=== PATIENT | female | born 1945 | race Caucasian/White ===

== ENCOUNTER → 2016-06-10 | Outpatient (CLI) | payer BC ==
[~2016-06-10] MED LIST: ASPI-113 PO; CALC-354 PO; LORA0.5T12 PO; OMEGCAP2 PO; RSTOPS OPB; SIMV40TA4 PO
--- NOTE | 2016-06-10 16:11 | MAMMOGRAPHY REPORT ---
BILATERAL DIGITAL SCREENING MAMMOGRAM WITH CAD: 06/10/2016 CLINICAL HISTORY: Routine screening. Patient has no complaints. TECHNIQUE: Current study was also evaluated with a Computer Aided Detection (CAD) system. Bilatera l CC and MLO views were obtained. COMPARISON: Comparison is made to exams dated: 06/09/2015 mammogram, 06/05/2013 mammogram, 06/06/2014 ma mmogram, 06/02/2012 mammogram, 05/20/2011 mammogram, and 05/19/2010 mammogram - [facility]. BREAST COMPOSITION: There are scattered areas of fibroglandular density in both breasts. FINDINGS: No suspicious masses, calcifications, or areas of architectural distortion are noted in e ither breast. There has been no significant interval change compared to prior exams. Scattered bilat eral benign-appearing calcifications are not significantly changed. A biopsy marker clip is again n oted in the right medial breast. IMPRESSION: ACR BI-RADS CATEGORY 2: BENIGN There is no mammographic evidence of malignancy. A 1 year screening mammogram is recommended. The p atient will receive written notification of the results. Approximately 10% of breast cancers are not detected with mammography. A negative mammographic repor t should not delay biopsy if a clinically suggestive mass is present. Nicole Gonzalez M.D. ah/:06/10/2016 13:26:11 House Player: Kathleen SCHULTE(Young)(Edgar)(BD), [facility] letter sent: Normal 1/2 BI-RADS Code: ACR BI-RADS Category 2: Benign
== END | disposition home or self-care (01) ==
LOC: C.MAMM 10:35
PROVIDERS: ATTEND Obstetrics & Gynecology
DX: Z12.31 Encounter for screening mammogram for malignant neoplasm of breast (principal)

== ENCOUNTER → 2017-06-13 | Outpatient (CLI) | payer BC ==
--- NOTE | 2017-06-13 14:47 | MAMMOGRAPHY REPORT ---
BILATERAL DIGITAL SCREENING MAMMOGRAM TOMOSYNTHESIS WITH CAD: 06/13/2017 CLINICAL HISTORY: Routine screening. Patient has no complaints. TECHNIQUE: Breast tomosynthesis in addition to standard 2D mammography was performed. Current study was also evaluated with a Computer Aided Detection (CAD) system. COMPARISON: Comparison is made to exams dated: 06/10/2016 mammogram, 06/09/2015 mammogram, 06/06/2014 ma mmogram, 06/05/2013 mammogram, 06/02/2012 mammogram, and 05/20/2011 mammogram - [facility]. BREAST COMPOSITION: There are scattered areas of fibroglandular density in both breasts. FINDINGS: There are scattered benign-appearing calcifications in the breasts, and a stable biopsy mar ker clip in the medial right breast. No new suspicious mass, architectural distortion or cluster of suspicious microcalcifications is seen. IMPRESSION: ACR BI-RADS CATEGORY 1: NEGATIVE There is no mammographic evidence of malignancy. A 1 year screening mammogram is recommended. The pa tient will receive written notification of the results. Approximately 10% of breast cancers are not detected with mammography. A negative mammographic report should not delay biopsy if a clinically suggestive mass is present. Cassi Daly M.D. ay/:06/13/2017 13:37:34 Electrician Aircraft: Jovana DINH)(M), [facility] letter sent: Normal 1/2 BI-RADS Code: ACR BI-RADS Category 1: Negative
== END | disposition home or self-care (01) ==
LOC: C.MAMM 10:33
PROVIDERS: ATTEND Obstetrics & Gynecology
DX: Z12.31 Encounter for screening mammogram for malignant neoplasm of breast (principal)

== ENCOUNTER 2019-03-06 10:11 | Inpatient (IN) ==
--- NOTE | 2019-02-03 14:16 | PAT Medication Instructions ---
Medication Instructions Date of Service February 03, 2019 Home Medications Caltrate 600 plus D 2 tab PO QPM Restasis 1 drp OPHTHALMIC (EYE) Q12H aspirin [Aspirin Low Dose] 81 mg PO QAM flaxseed oil 2,000 mg PO BID garlic 1,000 mg PO QAM lorazepam 0.5 - 1 mg PO HS PRN magnesium oxide 400 mg PO QPM PRN meloxicam 15 mg PO QAM PRN fluticasone propionate 1 applic TOPICAL UD ASK your surgeon for instructions meloxicam 15 mg PO QAM PRN STOP taking 2 weeks before surgery (or as soon as possible if surgery is within 2 weeks) flaxseed oil 2,000 mg PO BID garlic 1,000 mg PO QAM STOP taking 24 hours before surgery fluticasone propionate 1 applic TOPICAL UD Take morning of surgery With a small sip of water, OTHERWISE NOTHING TO EAT OR DRINK AFTER MIDNIGHT: Restasis 1 drp OPHTHALMIC (EYE) Q12H aspirin [Aspirin Low Dose] 81 mg PO QAM Take evening before surgery Caltrate 600 plus D 2 tab PO QPM Restasis 1 drp OPHTHALMIC (EYE) Q12H lorazepam 0.5 - 1 mg PO HS PRN (if needed) magnesium oxide 400 mg PO QPM PRN (if needed) Other Notes If you have any questions please call us at [phone] or [phone] or [phone] or [phone]
--- NOTE | 2019-02-05 09:35 | Anesthesiology Consultation ---
Date of Service February 05, 2019 Assessment & Plan (1) Encounter for pre-operative examination: Chart Review Chart Review: Pending: Refer to Additional Notes / Consult section (pending preop testing (labs, EKG, CXR)) and Patient seen in Pre Admission Testing Teaching & Discussion Pre-Anesthesia Teaching/Discussion Notes: Instructed NPO after midnight before surgery,except medications with 15 cc of water. Medication instructions provi ded according to the PAT guidelines. History Surgery Operation Date: 03/06/19 12:30 Proposed Procedures p Total Knee Arthroplasty - Adan Dunbar MD Left Height/Weight Height: 5 ft 6 in Weight: 71.7 kg Allergies Allergy/AdvReac Type Severity Reaction Status Date / Time No Known Allergies Allergy Verified 02/02/19 11:34 Medications Home Medications Medication Instructions Recorded Confirmed Last Taken Caltrate 600 plus D 2 tab PO QPM 03/13/18 02/02/19 03/13/18 Restasis 1 drp OPHTHALMIC (EYE) Q12H 03/13/18 02/02/19 03/14/18 aspirin [Aspirin Low Dose] 81 mg PO QAM 03/13/18 02/02/19 03/13/18 flaxseed oil 2,000 mg PO BID 03/13/18 02/02/19 03/13/18 garlic 1,000 mg PO QAM 03/13/18 02/02/19 03/13/18 lorazepam 0.5 - 1 mg PO HS PRN 03/13/18 02/02/19 03/13/18 magnesium oxide 400 mg PO QPM PRN 03/13/18 02/02/19 02/08/18 meloxicam 15 mg PO QAM PRN 03/13/18 02/02/19 03/12/18 fluticasone propionate 1 applic TOPICAL UD 02/02/19 02/02/19 Unknown Past Medical History Medical History Anxiety Eczema GERD (gastroesophageal reflux disease) diet controlled History of migraine Hyperlipidemia no meds Osteoarthritis Exercise / Class Metabolic Activity II 4-5 Yardwork/Stairs/Walk up hill Past Surgical History Surgical History History of arthroscopy of right knee History of bilateral cataract extraction History of bilateral tubal ligation History of breast biopsy R--benign History of colonoscopy w/ polypectomy History of dilatation and curettage History of tooth extraction wisdom teeth Hx of lumpectomy 1965--R benign Past Anesthesia History Other Patient- Awareness toward end of procedure (specifically with colonoscopy). Granddaughter- "slow to wake" x 1 episode. History of PONV No Hx of PONV and Hx of Motion Sickness (seasickness x 1 episode ) Social History Smoking Status: Never smoker Do You Dip or Chew Tobacco: No Hx Alcohol Use: Yes Alcohol type: wine alcohol intake frequency: a few times a month Hx Substance Use: No substance use type: does not use Review of Systems Rare, remote hx palpitations. Reflux diet controlled. Patient denies chest pain, shortness of breath, dyspnea on exertion, cough, wheezing. Physical Exam Vital Signs VITALS BP 121/69 P 66 TEMP 97.7 SP02 99%RA RESP 18 PHYSICAL Full neck and c-spine range of motion. Full TMJ range of motion. TMD 2.5 finger breaths (small chin) Mallampati Score 3 (small oral opening) Dentition: intact, naturally "sharp" lower canine teeth, caps on several teeth on sides/molars Lungs: clear throughout to auscultation Cardiac: regular rate and rhythm, no murmurs noted Spine: normal Carotid arteries: negative bruit Extremities: no edema Testing Echocardiogram Date: 11/28/12 EF 60-65%. No RWMA. Grade I-II DD. Mild RVD. Mild mitral annular calcification.
--- NOTE | 2019-02-05 10:59 | XRay Report ---
XR chest Pre-admission PA/Lat CLINICAL HISTORY: Preoperative chest COMPARISON STUDY: No previous studies for comparison. FINDINGS: The cardiac and mediastinal contours are normal. There is mild interstitial thickening/scar ring at the right lung apex. There is no focal pulmonary consolidation. There are no pleural effusion s. On the lateral view, there is a 13 mm opacity within the retrosternal soft tissues. No correspondi ng abnormalities visualized in the PA film. CT scanning is recommended in follow-up[ IMPRESSION: 1. Nonspecific 13 mm opacity visualized within the retrosternal space on the lateral view. No corresp onding abnormality is visualized in the PA film. CT scanning is recommended in follow-up to exclude a true parenchymal nodule Electronically signed by: Bryson Gardner M.D. 02/05/2019 10:58 AM
[2019-02-05 11:32] LABS: Basophils # (auto) 0.03 K/uL (0-0.2); Basophils % (auto) 0.4 %; Eosinophils # (auto) 0.11 K/uL (0-0.5); Eosinophils % (auto) 1.5 %; Hematocrit (blood only) 41.3 % (37-47); Immature Granulocytes # (auto) 0.02 K/uL (0.00-0.02); Immature Granulocytes % (auto) 0.3 %; Lymphocytes # (auto) 2.33 K/uL (1.2-3.4); Lymphocytes % (auto) 31.6 %; Mean Corpuscular Hemoglobin 30.8 pg (25-34); Mean Corpuscular Hgb Conc 33.9 g/dL (32-36); Mean Platelet Volume 10.4 fL (7.4-10.4); Monocytes # (auto) 0.48 K/uL (0.11-0.59); Monocytes % (auto) 6.5 %; Neutrophils # (auto) 4.41 K/uL (1.4-6.5); Neutrophils % (auto) 59.7 %; Platelet Count 220 K/uL (130-400); RDW Coefficient of Variation 13.2 % (11.5-14.5); RDW Standard Deviation 43.7 fL (36.4-46.3); Red Blood Count 4.54 M/uL (4.2-5.4); White Blood Count 7.38 K/uL (4.8-10.8)
[2019-02-05 11:47] LABS: Partial Thromboplastin Time 26.4 Seconds (21.0-31.0)
[2019-02-05 11:56] LABS: BUN Creatinine Ratio 28.7 (10-20); Calcium 8.6 mg/dl (8.5-10.1); Est GFR (African American) 101.8; Est GFR (Non-African American) 87.8; Potassium 4.3 mmol/L (3.5-5.1)
--- NOTE | 2019-03-03 18:18 | History and Physical Report ---
DATE OF ADMISSION: 03/06/2019 CHIEF COMPLAINT: Bilateral knee pain and discomfort, left side greater than right. HISTORY OF PRESENT ILLNESS: A 73-year-old female who presents for surgical treatment of her knees. She has been through extensive conservative treatment in the past. She had a long history of knee problems. She has had injections which helped initially but became less successful over time to the point that they do not help much at all. The left knee is a bit worse than the right. It is global pain. The more she walks, the more it hurts. She has pain going up and down stairs. She would like to start getting her knees fixed. PAST MEDICAL HISTORY: 1. Elevated cholesterol. 2. Anxiety/depression. 3. Osteoarthritis. PAST SURGICAL HISTORY: Include: 1. Right knee arthroscopy done 12 years ago. 2. Breast cyst removal. ALLERGIES: None. CURRENT MEDICINES: Include: 1. Lorazepam. 2. Meloxicam. 3. Flaxseed oil. 4. Garlic. 5. Melatonin. 6. Calcium with D. 7. Baby aspirin. 8. Restasis. SOCIAL HISTORY: A 73-year-old female. She is . Lives in [place]. One drink per week. Does not smoke. FAMILY HISTORY: Noncontributory. REVIEW OF HISTORY: Negative for diabetes, neurologic problem, vascular problem, bleeding disorders. Denies any chest pain or shortness of breath. No history of DVT or PE. No known bleeding problems. PHYSICAL EXAMINATION: GENERAL: Reveals a healthy, pleasant middle-aged female. Looks to be in good health. HEENT: Benign. NECK: Supple, no lymphadenopathy. LUNGS: Clear to auscultation. HEART: Regular rate and rhythm. ABDOMEN: Soft, nontender, nondistended. EXTREMITIES: Grossly neurovascularly intact except as follows: Examination of both knees reveals the patient ambulates independently but with a bit of a waddling gait. She has got varus alignment to both knees. Examination of left knee reveals varus alignment. She has got bony hypertrophy medially. Small knee effusion. Range of motion is near full extension to 125 degrees of flexion. No instability. No pain with hip motion. Examination of the right knee reveals a similar varus deformity. She is tender over the medial joint line. She has bony hypertrophy medially. Range of motion is near full extension to 125 degrees of flexion. No instability. No pain with hip motion. X-RAYS: Both knees reveal advanced bilateral knee DJD. She has got complete loss of medial joint space in both knees. Right side is a little worse radiographically, but both are severe. She has subchondral sclerosis. ASSESSMENT: A 73-year-old female with advanced bilateral knee degenerative joint disease. The left side has been more symptomatic than the right. She has failed conservative treatment. She elects to proceed with knee replacement. PLAN: We will take her to the operating room and do left total knee replacement. The risks and benefits of this procedure were explained to the patient including but not limited to DVT, PE, , infection, neurological injury, vascular injury, bleeding problem, pain, limited range of motion, stiffness, failure to relieve symptoms, incomplete relief of symptoms, need for blood transfusion, etc. The patient understands and desires to proceed. Informed consent was obtained. We will do her left knee and see how she recovers from that. She will likely need a right knee done in the future.
[~2019-03-06 10:11] MED LIST changes: +ACETAMINOPHEN 500 MG TAB PO SCH; -ASPI-113 PO; +BUPIVACAINE 0.25% 30 ML VIAL ONE; +BUPIVACAINE 0.5 % 5 MG/1 ML PF 10ML VIAL ONE; +BUPIVACAINE LIPOSOME/PF 266 MG, BUPIVACAINE/EPINEPHRINE 50 ML, SODIUM CHLORIDE 0.9% 30 ... INFIL SCH; -CALC-354 PO; +CEFAZOLIN 2000MG 2,000 MG/15 ML SYR IV SCH; +FAMOTIDINE 20 MG TAB PO SCH; +GABAPENTIN 300 MG CAP PO SCH; -LORA0.5T12 PO; +LR 500ML BOLUS IV SCH; +LR 500ML BOLUS, THEN 15ML/HR IV SCH; +LR 60ML/HR IV SCH; +METOCLOPRAMIDE HCL 10 MG TABLET PO SCH; -OMEGCAP2 PO; -RSTOPS OPB; +SCOPOLAMINE 1.5 MG TDSY TD SCH; -SIMV40TA4 PO; +TRANEXAMIC ACID 1,000 MG **IV Intra-op IV SCH
--- NOTE | 2019-03-06 10:28 | History & Physical Bridge Note ---
Date of Service March 06, 2019 History & Physical Bridge Note I have examined the patient, reviewed the History & Physical and in the interval since the performance of the History & Physical I have noted the following changes of clinical significance: no changes noted
[2019-03-06] MEDS ORDERED: MIDAZOLAM HCL 1 MG/ML 2ML VIAL ONE ×2 (11:02→13:29)
[2019-03-06] MEDS ORDERED: fentaNYL citrate 100 MCG/2 ML VIAL ONE (11:02)
[2019-03-06] MEDS ORDERED: ATROPINE SULFATE 0.1 MG/ML 10ML SYR IV PRN (12:37)
[2019-03-06] MEDS ORDERED: fentaNYL citrate 100 MCG/2 ML VIAL IV PRN (12:37)
[2019-03-06] MEDS ORDERED: ePHEDrine sulfate 50 MG/ML AMP IV PRN (12:37)
[2019-03-06] MEDS ORDERED: BACITRACIN INJ 50,000 UNIT VIAL ONE (12:57)
[2019-03-06] MEDS ORDERED: SODIUM CHLORIDE 0.9% PF 50 ML VIAL ONE (12:57)
[2019-03-06] MEDS ORDERED: BUPIVACAINE LIPOSOME 1.3% 266 MG/20 ML VIAL ONE (12:57)
[2019-03-06] MEDS ORDERED: BUPIVACAINE 0.25% 30 ML VIAL ONE (12:58)
[2019-03-06] MEDS ORDERED: EPINEPHrine INJ 1 MG/ML AMP ONE (12:58)
[2019-03-06] MEDS ORDERED: PROPOFOL IV EMULSION 10 MG/ML 20 ML VIAL IV ONE (13:24)
--- NOTE | 2019-03-06 14:58 | Post Operative Brief Note ---
PG Immediate Post Op with CF Date of Surgery March 06, 2019 Pre & Post Diagnosis Operation Date: 03/06/19 12:30 Pre-Op Diagnosis: Left Knee Advanced Degenerative Joint Disease Post-Op Diagnosis: Left Knee Advanced Degenerative Joint Disease I personally identified the patient: Yes Procedure Operation Date: 03/06/19 12:30 Actual Procedures p Left Total Knee Arthroplasty(Left) - Adan Dunbar MD Surgeon Adan Dunbar MD Rat Culturist Miya, PAC Estimated Blood Loss 50 Findings Consistent with Post-Op Diagnosis Fluids 1500 cc Specimens Specimen Description: A. Left Knee Bone and Tissue Drains Dinero Catheter (A 16 Azeri dinero catheter was inserted by Kelin Alex RN, without difficulty, clear yellow urine obtained, output to be monitored by Anesthesia.) Anesthesia Type Spinal MAC Complications none Disposition Accompanied Patient To Recovery: No Disposition: Recovery Room
--- NOTE | 2019-03-06 15:32 | XRay Report ---
LEFT KNEE 2 VIEWS History: Left total knee arthroplasty. Degenerative arthritis. Postop. FINDINGS: The patient is status post a left total knee arthroplasty. The hardware is intact. No fract ure or dislocation. Skin erasto are in place. IMPRESSION: Left total knee arthroplasty. No evidence for hardware complication. Electronically signed by: Giovanni Licea M.D. 03/06/2019 3:30 PM
[2019-03-06] MEDS ORDERED: LORazepam 0.5 MG TAB PO PRN (15:51)
[2019-03-06] MEDS ORDERED: METOCLOPRAMIDE HCL INJ 5 MG/ML 2 ML VIAL IV PRN (15:51)
[2019-03-06] MEDS ORDERED: HYDROmorphone INJ 0.5 MG/0.5 ML SYR IV PRN (15:51)
[2019-03-06] MEDS ORDERED: NALOXONE HCL 0.4 MG/1 ML VIAL/CARP IV PRN (15:51)
[2019-03-06] MEDS ORDERED: bisacodyL 10 MG SUPP PR PRN (15:51)
[2019-03-06] MEDS ORDERED: ALUMINUM/MAGNESIUM SUSP 30 ML UDC PO PRN (15:51)
[2019-03-06] MEDS ORDERED: MAGNESIUM OXIDE 400 MG TAB PO PRN (15:51)
[2019-03-06] MEDS ORDERED: ONDANSETRON INJ 2 MG/ML 2 ML VIAL IV PRN (15:51)
[2019-03-06] MEDS ORDERED: SODIUM CHLORIDE 0.9% 1000ML 1,000 ML IV SCH (15:51)
[2019-03-06] MEDS ORDERED: MAGNESIUM HYDROXIDE SUSP 30 ML UDC PO PRN (15:51)
[2019-03-06] MEDS: CHECK SCOPOLAMINE PATCH PLACEMENT SCH ×2 (16:45→23:05)
--- NOTE | 2019-03-06 17:08 | Anesthesiology Progress Note ---
Date of Service March 06, 2019 Anesthesia Post Procedure Vital Signs Vital Signs: Temp Pulse Pulse Resp BP Pulse Ox 03/06/19 16:40 36.4 C L 72 14 134/75 100 03/06/19 16:00 36.3 C L 74 16 126/74 98 03/06/19 15:50 36.3 C L 77 19 145/83 H 100 03/06/19 15:40 36.2 C L 77 15 140/74 97 03/06/19 15:30 36.2 C L 74 15 126/76 99 03/06/19 15:20 36.2 C L 74 14 124/76 100 03/06/19 15:10 36.2 C L 74 16 125/62 100 03/06/19 15:02 36.2 C L 84 14 125/75 95 03/06/19 10:56 36.9 C 81 20 154/94 H 98 Transfer of Care Handoff Completed per policy Notes Mental Status: alert / awake / arousable Patient Amnestic to Procedure: Yes Nausea / Vomiting: adequately controlled Pain: adequately controlled Airway Patency, RR, SpO2: stable & adequate BP & HR: stable & adequate Hydration State: stable & adequate Neuraxial Anesthesia: was administered and sensory block is resolving Anesthetic Complications: no major complications apparent and Pt Satisfied with anesthetic care
--- NOTE | 2019-03-06 17:22 | Operative Report ---
Post Operative Report Pre & Post Diagnosis Operation Date: 03/06/19 12:30 Pre-Op Diagnosis: Left Knee Advanced Degenerative Joint Disease Post-Op Diagnosis: Left Knee Advanced Degenerative Joint Disease I personally identified the patient: Yes Procedure Operation Date: 03/06/19 12:30 Actual Procedures p Left Total Knee Arthroplasty(Left) - Adan Dunbar MD Surgeon Adan Dunbar MD Metal Room Dental Technician Miya, PAC Estimated Blood Loss 50 Findings Consistent with Post-Op Diagnosis Fluids 1500 cc Specimens Left knee sent for pathology. Drains None Anesthesia Type Spinal MAC Complications none Disposition Accompanied Patient To Recovery: No Disposition: Recovery Room Indications Patient is a 73-year-old female whose had a long history of bilateral knee pain discomfort that is failed conservative care. The left knee was a bit worse than the right. X-rays revealed severe to bilateral knee DJD. She like to proceed with surgical treatment of the left knee. Description of Procedure Operative implants: 1. Biomet Vanguard size 65 left posterior stabilized femoral component. 2. Biomet size 67 tibial tray. 3. 12 mm posterior stabilized polyethylene insert. 4. 31 x 8 all poly-patella. Patient was taken to the operating room identified and placed in the operating table in supine position. All contact areas were meticulously padded. A spinal anesthetic and abductor canal block had been provided in the holding area. Adhikari catheter was placed in sterile fashion. A left thigh tourniquet was then placed in the left lower extremities and prepped and draped in usual sterile fashion. The left leg was elevated and exsanguinated with use of an Esmarch and the tourniquet was placed at 300 mmHg. An anterior approach to the left knee was then performed the longitudinal incision centered over the patella. Sharp dissection was Through subtenons tissues down the level of the extensor mechanism. A medial parapatellar arthrotomy incision was made. Some subperiosteal dissection was carried out medially. The fat pad was dissected from each patella tendon. Lateral patellofemoral ligament was released. Patella was everted and the knee was flexed. The osteophytes taken off the distal femur. The ACL and PCL were then released from the distal femur and the tibia subluxated anteriorly. The external tibial alignment jig was then placed in the anterior face the tibia and adjusted 14 mm medially. Proximal tibial cut was made to remove about 2 mm of bone from the most efficient aspect of the medial tibial plateau. Some osteophytes were taken off medial and posterior medially. The tibia sized to a size 67. Attention down to the femur. The distal femur was entered with a sharp drill. The intramedullary canal was suction. A 5 degree valgus cutting guide was then placed. The distal femoral cutting block was pinned in place. The distal femoral cut was made to take an additional 3 mm of bone off the distal femur. The femur was then sized to size 65. We did down size this slightly. The AP cutting block was pinned parallel t o the epicondylar axis which was 5 degrees of external rotation. The anterior cut, and chamfer, posterior cut, posterior chamfer cuts were made. Box cutting guide was placed and adjusted slightly lateral and the box cut was made. The knee was flexed. The remnants of the medial lateral menisci were excised with the osteophytes were taken off the posterior aspect of the femur. A trial femoral component was placed. The tibial tray was pinned in maximum external rotation and the drill and stem punch were used to create defect in the proximal to for the tibial tray. The knee was then trialed and the 12 mm insert fit most appropriately. Attention down the patella. The patella was cleaned of all soft tissues. Patella thickness measured 21 mm in thickness was cut down to 13. It was sized to a size 31 patella. The lug holes were drilled for the 31 patella. The lateral osteophyte was removed. Patella button was placed. The knee was taken through range of motion and the patella tracked nicely with a no thumbs test. Attention was then drawn toward placing the permanent components. All trial implants were removed. A bone plug was placed in the disc femur limit blood loss. The knee was irrigated with extensive amounts of pulsatile lavage solution. A double batch of Palacos G cement was mixed. A Biomet Vanguard size 65 left posterior bifemoral component, size 67 tibial tray, a 12 mm posterior stabilized polyethylene insert, and a 31 x 8 all poly-patella were then cemented in place. He was brought out into full extension until the cement hardened. Final cement check was then performed. The pericapsular tissues were injected with total of 100 cc of combination of 20 cc of Exparel, 30 cc of normal saline, and 50 cc of half percent Marcaine with epinephrine. The patient did receive 1 g of tranexamic acid. The tourniquet was then let down for a final tourniquet time was 53 minutes. Hemostasis was assured with electrocautery. The wounds once again irrigated. Extensor mechanism then closed with a combination of 1 PDS suture and #1 Vicryl suture in a [id number] fashion. Extensor mechanism was checked and found to be intact. Subcutaneous tissue was then closed with 2-0 Dexon suture in a buried interrupted fashion the skin was closed with skin erasto. The knee was then cleaned and dried and sterile dressing composed of Xeroform, 4 x 4's, sterile cast padding, Jay bandage were applied. Patient then transferred to the recovery room in stable condition. Patient tolerated procedure well no comp occasions. All needle sponge counts were correct at the end the operation. I attest to the content of the Intraoperative Record and any orders documented therein. Any exceptions are noted below.
[2019-03-06] MEDS: FERROUS GLUCONATE 324 MG TAB PO SCH (17:32)
[2019-03-06] MEDS: KETOROLAC TROMETHAMINE 15 MG/ML VIAL IV SCH ×2 (17:32→23:04)
[2019-03-06] MEDS: ASCORBIC ACID 500 MG TAB PO SCH (17:32)
[2019-03-06] MEDS: DOCUSATE SODIUM 100 MG CAP PO SCH (20:38)
[2019-03-06] MEDS: ACETAMINOPHEN 500 MG TAB PO SCH (20:38)
[2019-03-06] MEDS: ASPIRIN 81 MG ECTAB PO SCH (20:38)
[2019-03-06] MEDS: CEFAZOLIN 1000MG 1,000 MG/7.5 ML SYR IV SCH (20:49)
[2019-03-06] MEDS ORDERED: TRANEXAMIC ACID 1,000 MG in 0.9 % SODIUM CHLORIDE 100 ML IV SCH (20:59)
[2019-03-06] MEDS ORDERED: CALCIUM 600MG + VIT D 400 IU TAB PO SCH (21:00)
[2019-03-06] MEDS ORDERED: SENNA 8.6 MG TAB PO SCH (21:00)
[2019-03-06] MEDS ORDERED: FLAXSEED OIL 2000 MG PO SCH (21:00)
[2019-03-07] MEDS: TRAMADOL HCL 50 MG TABLET PO PRN ×2 (01:13→14:03)
[2019-03-07 05:14] LABS: Hematocrit (blood only) 34.1 % (37-47); Hemoglobin 11.5 g/dL (12.0-16.0); Mean Corpuscular Hemoglobin 30.7 pg (25-34); Mean Corpuscular Hgb Conc 33.7 g/dL (32-36); Mean Corpuscular Volume 91.2 fL (80-100); Mean Platelet Volume 10.1 fL (7.4-10.4); Platelet Count 188 K/uL (130-400); RDW Coefficient of Variation 13.2 % (11.5-14.5); RDW Standard Deviation 43.9 fL (36.4-46.3); Red Blood Count 3.74 M/uL (4.2-5.4); White Blood Count 8.94 K/uL (4.8-10.8)
[2019-03-07] MEDS: CEFAZOLIN 1000MG 1,000 MG/7.5 ML SYR IV SCH (05:27)
[2019-03-07] MEDS: KETOROLAC TROMETHAMINE 15 MG/ML VIAL IV SCH ×2 (05:27→12:42)
[2019-03-07] MEDS: ACETAMINOPHEN 500 MG TAB PO SCH ×2 (05:27→14:03)
[2019-03-07 05:39] LABS: BUN Creatinine Ratio 20.5 (10-20); Calcium 8.2 mg/dl (8.5-10.1); Creatinine Clr Calc Pharmacy 63.2 ml/min; Est GFR (African American) 85.4; Est GFR (Non-African American) 73.7; Potassium 4.2 mmol/L (3.5-5.1)
[2019-03-07] MEDS ORDERED: INFLUENZA VACCINE HIGH DOSE 65+ 0.5 ML SYR IM ONE (06:00)
[2019-03-07] MEDS ORDERED: INFLUENZA ADMINISTRATION CHARGE ONE (06:00)
[2019-03-07] MEDS ORDERED: PNEUMOCOCCAL ADMINISTRATION CHARGE ONE (06:00)
[2019-03-07] MEDS ORDERED: PNEUMOCOCCAL POLYSACCHARIDES 25 MCG/0.5 ML VIAL/SYR IM ONE (06:00)
--- NOTE | 2019-03-07 07:46 | Progress Note ---
DATE: 03/07/2019 SUBJECTIVE: A 73-year-old white female postop day #1 from a left knee replacement. She is doing well. Had a pretty good night. Pain is controlled. No chest pain or shortness of breath. Not feeling dizzy or lightheaded. OBJECTIVE: VITAL SIGNS: Temperature 36.6. Vital signs stable. GENERAL: Shows a pleasant, middle-aged female. She is lying in bed and looks comfortable. LUNGS: Clear to auscultation. HEART: Regular rate and rhythm. ABDOMEN: Soft, nontender, nondistended. EXTREMITIES: Grossly neurovascularly intact except as follows. Examination of the left lower extremity reveals the leg to be well aligned. Dressing is clean, dry and intact. She can dorsiflex and plantarflex her foot appropriately. She is neurologically intact. LABORATORY DATA: Hemoglobin 11.5, hematocrit 34.1. Electrolytes are stable. ASSESSMENT: A 73-year-old white female postop day #1 from a left knee replacement, doing pretty well. Pain is controlled. PLAN: 1. DVT prophylaxis including thigh-high TEDs, SCDs, and aspirin twice a day. 2. PT/OT. Weight bear as tolerated. Left total knee protocol. 3. Pain control, doing pretty well with current pain regimen. 4. Disposition: Plan to discharge to home with some home health once adequately recovered and medically stable.
[2019-03-07] MEDS: FERROUS GLUCONATE 324 MG TAB PO SCH (08:28)
[2019-03-07] MEDS: ASCORBIC ACID 500 MG TAB PO SCH (08:29)
[2019-03-07] MEDS: DOCUSATE SODIUM 100 MG CAP PO SCH (08:29)
[2019-03-07] MEDS: ASPIRIN 81 MG ECTAB PO SCH (08:29)
[2019-03-07] MEDS ORDERED: NON-FORMULARY MEDICATION (Garlic 1,000 MG) PO SCH (09:00)
[2019-03-07] MEDS ORDERED: MULTIVITAMIN TAB PO SCH (09:00)
--- NOTE | 2019-03-10 03:27 | Discharge Summary ---
ADMITTING PHYSICIAN AND SURGEON: Dr. Adan Dunbar. ADMITTING DIAGNOSIS: Left knee degenerative joint disease. SURGERY PERFORMED: Left total knee replacement. SECONDARY DIAGNOSES: Elevated cholesterol, anxiety, depression, osteoarthritis. CONSULTS: None obtained. HISTORY AND PHYSICAL EXAMINATION: Well documented in the patient's chart. HOSPITAL COURSE: The patient was admitted on 03/06/2019, underwent total knee replacement, tolerated the procedure well. There were no complications. He was transferred to the PACU postoperatively and later to the orthopedic floor for further care. She was given Ancef for antibiotic prophylaxis, ALBER stockings, SCDs and aspirin for DVT prophylaxis. Hemoglobin, hematocrit and vital signs were monitored during her hospital stay and remained stable. She did not require any blood transfusions. There were no complications. By postoperative day 1, she was tolerating a regular diet, pain was controlled with oral pain medicine. She was participating in physical therapy. On postop day 1, she was discharged home, set up with home health services. She was given printed discharge instructions as well as new prescriptions for extra-strength Tylenol, aspirin, Zofran, and tramadol. Continue home medications with the exception of her home dose of aspirin which was changed. Continue physical therapy, weightbearing as tolerated, ALBER stockings. Follow up in approximately 2 weeks postoperatively or sooner if there are any problems or concerns.
== END 2019-03-07 14:54 | disposition home health service (06) | DRG 470 ==
LOC: ASU 10:11 → 3E 15:02